=== PATIENT | male | born 1935 | race Caucasian/White ===

== ENCOUNTER 2020-01-18 13:39 | Inpatient (IN) | payer MEDICARE, OTHER ==
[~2020-01-18] VITALS: Ht 172.7 cm; Wt 84.0 kg
--- NOTE | 2020-01-18 13:58 | NUR ---
heparin gtt continued at 1200 units/hour. amiodaron gtt continued at 1 mg/hr (w filter on). pt is drowsy, oriented to self, place, year, not really situation. oriented x4 for outlying facility, received 100 fent by [facility] for pain. went to [facility], no head/loc, found in afib rvr and RA sat 88. cxr showed pna, given rocephin, lactic 1.7. 3 L ns bolus since 0700 d/t hypotension. denies cp sob. lungs ctab. afib 140s. 2lnc. abd snt. bs present. fall precs, call soares. as
[2020-01-18] MEDS ORDERED: FILTER 0.22 MICRON FOR AMIODARONE IV PRN (14:00)
[2020-01-18] MEDS ORDERED: PLEASE ENTER ALLERGIES MC SCH (14:00)
[2020-01-18] MEDS ORDERED: PLEASE ENTER HEIGHT AND WEIGHT MC SCH (14:00)
--- NOTE | 2020-01-18 14:18 | NUR ---
md at bedside. as
[2020-01-18] MEDS ORDERED: DILTIAZEM 125 MG in SODIUM CHLORIDE 0.9% 100 ML IV SCH (14:22)
[2020-01-18 14:55] LABS: BASOPHILS # (AUTO) 0.02 x10^3/uL (0-0.1); BASOPHILS % (AUTO) 0 % (0-1); EOSINOPHILS # (AUTO) 0.02 x10^3/uL (0-0.4); EOSINOPHILS % (AUTO) 0 % (1-7); LYMPHOCYTES % (AUTO) 19 % (22-44); MD NO; MEAN CORPUSCULAR HEMOGLOBIN 29.4 pg (27.5-34.5); MEAN CORPUSCULAR HGB CONC 32.9 g/dL (33.2-36.2); MEAN PLATELET VOLUME 8.4 fL (7.4-10.4); MONOCYTES # (AUTO) 0.67 x10^3/uL (0.2-0.8); MONOCYTES % (AUTO) 10 % (2-9); NEUTROPHILS # (AUTO) 4.82 x10^3/uL (1.8-6.8); NEUTROPHILS % (AUTO) 71 % (42-75); PLATELET COUNT 231 x10^3/uL (130-400); RED BLOOD COUNT 3.94 x10^6/uL (4.38-5.82); RED CELL DISTRIBUTION WIDTH 15.2 % (9.4-14.8)
--- NOTE | 2020-01-18 15:00 | NUR ---
pavel mcdaniels daughter [id number]
[2020-01-18 15:05] LABS: INTERNATIONAL NORMALIZED RATIO 1.14 (0.93-1.1); PROTHROMBIN TIME 12.1 Seconds (9.6-11.5)
[2020-01-18 15:07] LABS: ALBUMIN 2.4 g/dL (3.4-5.0); ANION GAP 10 mmol/L (5-15); CALCIUM 8.3 mg/dL (8.5-10.1); CHLORIDE 110 mmol/L (98-107)
--- NOTE | 2020-01-18 15:09 | NUR ---
updated . clarified heparin gtt w/ pharm. cont at 1200 units and draw anti 10xa timed. dilt gtt req from pharm. as
[2020-01-18 15:11] LABS: ALANINE AMINOTRANSFERASE 18 U/L (12-78); ALKALINE PHOSPHATASE 141 U/L (45-117); BILIRUBIN,TOTAL 1.7 mg/dL (0.2-1.0); CREATININE 1.31 mg/dL (0.7-1.3); T4 (THYROXINE) 6.9 mcg/dL (4.5-12.1); TOTAL PROTEIN 5.6 g/dL (6.4-8.2); TROPONIN I < 0.015 ng/mL (0.000-0.045)
[2020-01-18] MEDS: HEPARIN 25,000 UNITS/250ML PMX 250 ML IV PRN (15:21)
[2020-01-18] MEDS ORDERED: HEPARIN 5,000 UNITS/ML, 1ML IV ONE (16:00)
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
[2020-01-18] MEDS ORDERED: AMIODARONE 450 MG in DEXTROSE 5% 241 ML IV PRN (16:57)
[2020-01-18] MEDS ORDERED: hydrALAzine 20 MG/ML, 1ML IVPush PRN (17:00)
[2020-01-18] MEDS ORDERED: morphine SULFATE 10 MG/ML, 1ML IVPush PRN (17:00)
[2020-01-18] MEDS ORDERED: DILTIAZEM 125 MG in SODIUM CHLORIDE 0.9% 100 ML IV PRN (17:00)
[2020-01-18] MEDS ORDERED: POLYETHYLENE GLYCOL 17 GM PACKET PO PRN (17:00)
[2020-01-18] MEDS ORDERED: LIDODERM 5% PATCH TD PRN (17:00)
[2020-01-18] MEDS ORDERED: AZITHROMYCIN 500 MG in SODIUM CHLORIDE 0.9% 250 ML IV SCH (17:00)
[2020-01-18] MEDS ORDERED: ONDANSETRON 2MG/ML, 2ML IVPush PRN (17:00)
[2020-01-18] MEDS ORDERED: BISACODYL 10 MG SUPP PR PRN (17:00)
--- NOTE | 2020-01-18 17:00 | NUR ---
aware of hr afib 130s jules aware too plan for amio. as
[2020-01-18 17:17] LABS: BASOPHILS # (AUTO) 0.02 x10^3/uL (0-0.1); BASOPHILS % (AUTO) 0 % (0-1); EOSINOPHILS # (AUTO) 0.06 x10^3/uL (0-0.4); EOSINOPHILS % (AUTO) 1 % (1-7); LYMPHOCYTES # (AUTO) 1.44 x10^3/uL (1-3.4); LYMPHOCYTES % (AUTO) 21 % (22-44); MD NO; MEAN CORPUSCULAR HEMOGLOBIN 29.4 pg (27.5-34.5); MEAN CORPUSCULAR HGB CONC 32.8 g/dL (33.2-36.2); MEAN PLATELET VOLUME 8.3 fL (7.4-10.4); MONOCYTES # (AUTO) 0.62 x10^3/uL (0.2-0.8); MONOCYTES % (AUTO) 9 % (2-9); NEUTROPHILS % (AUTO) 68 % (42-75); PLATELET COUNT 216 x10^3/uL (130-400); RED CELL DISTRIBUTION WIDTH 15.1 % (9.4-14.8)
[2020-01-18 17:32] LABS: FREE T4 (FREE THYROXINE) 1.11 ng/dL (0.76-1.46); TROPONIN I 0.017 ng/mL (0.000-0.045)
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
[2020-01-18 18:24] VITALS: BP 107/62
[2020-01-18 19:42] VITALS: BP 103/67
[2020-01-18] MEDS: MELATONIN 5 MG TABLET PO PRN (20:48)
[2020-01-18] MEDS: CEFTRIAXONE PMX 1GM/50ML 50 ML IV SCH (20:49)
[2020-01-18] MEDS: OXYcodone IR 5MG TABLET PO PRN (20:49)
[2020-01-18 23:04] LABS: TROPONIN I < 0.015 ng/mL (0.000-0.045)
[2020-01-18] MEDS: HEPARIN 5,000 UNITS/ML, 1ML IV PRN (23:42)
[2020-01-19 00:14] VITALS: BP 104/65
[2020-01-19] MEDS: LIDODERM REMOVE PATCH NOTE XX SCH (03:03)
[2020-01-19] MEDS: HEPARIN 25,000 UNITS/250ML PMX 250 ML IV PRN (05:46)
[2020-01-19 06:16] LABS: ALANINE AMINOTRANSFERASE 18 U/L (12-78); ALBUMIN 2.4 g/dL (3.4-5.0); ANION GAP 10 mmol/L (5-15); CALCIUM 8.3 mg/dL (8.5-10.1); CHLORIDE 112 mmol/L (98-107); CREATININE 1.25 mg/dL (0.7-1.3)
[2020-01-19 06:18] LABS: ALKALINE PHOSPHATASE 138 U/L (45-117); BILIRUBIN,TOTAL 1.5 mg/dL (0.2-1.0); TOTAL PROTEIN 5.8 g/dL (6.4-8.2)
[2020-01-19 06:46] VITALS: BP 97/68
[2020-01-19] MEDS: HEPARIN 5,000 UNITS/ML, 1ML IV PRN (07:12)
[2020-01-19] MEDS ORDERED: PANTOPRAZOLE 40 MG IV IVPush SCH (07:30)
[2020-01-19] MEDS: CEFTRIAXONE PMX 1GM/50ML 50 ML IV SCH (10:28)
[2020-01-19] MEDS: DILTIAZEM 60 MG TABLET PO SCH ×3 (10:28→20:35)
[2020-01-19] MEDS ORDERED: OMNIPAQUE 350 MG/ML, 75ML BOTTLE ONE (11:09)
[2020-01-19 13:58] VITALS: BP 104/78
[2020-01-19 19:53] VITALS: BP 111/77
[2020-01-19] MEDS: MELATONIN 5 MG TABLET PO PRN (20:34)
[2020-01-19] MEDS: APIXABAN 5 MG TABLET PO SCH (20:35)
[2020-01-19] MEDS: OXYcodone IR 5MG TABLET PO PRN (20:35)
[2020-01-20] VITALS (12 sets, daily range): BP systolic 96–114; BP diastolic 52–79
[2020-01-20] MEDS: OXYcodone IR 5MG TABLET PO PRN (04:07)
[2020-01-20] MEDS: LIDODERM REMOVE PATCH NOTE XX SCH (05:00)
[2020-01-20] MEDS: PANTOPRAZOLE 40MG TABLET PO SCH (05:37)
[2020-01-20] MEDS: APIXABAN 5 MG TABLET PO SCH ×2 (09:16→20:57)
[2020-01-20] MEDS: DILTIAZEM 60 MG TABLET PO SCH ×3 (09:17→20:57)
[2020-01-20] MEDS ORDERED: LABETALOL 5MG/ML, 20ML IVPush ONE (17:30)
[2020-01-20] MEDS: MELATONIN 5 MG TABLET PO PRN (20:57)
[2020-01-21 02:25] VITALS: BP 110/59
[2020-01-21] MEDS: DILTIAZEM 60 MG TABLET PO SCH ×3 (02:46→09:32)
[2020-01-21] MEDS: LIDODERM REMOVE PATCH NOTE XX SCH (05:00)
[2020-01-21] MEDS: PANTOPRAZOLE 40MG TABLET PO SCH (05:26)
[2020-01-21 05:48] LABS: ANION GAP 8 mmol/L (5-15); CALCIUM 8.8 mg/dL (8.5-10.1); CHLORIDE 108 mmol/L (98-107); CREATININE 1.06 mg/dL (0.7-1.3)
[2020-01-21] MEDS ORDERED: METOPROLOL 1 MG/ML, 5ML IVPush ONE (06:45)
[2020-01-21] MEDS ORDERED: METOPROLOL TARTRATE 25 MG TAB PO ONE (06:45)
[2020-01-21 06:53] VITALS: BP 109/76
[2020-01-21] MEDS ORDERED: METO25TA35 PO (06:58)
[2020-01-21] MEDS ORDERED: LIDO700A20 TD (06:58)
[2020-01-21] MEDS ORDERED: DILT360T7 PO (06:58)
[2020-01-21] MEDS ORDERED: APIX5TAB PO (06:58)
[2020-01-21] MEDS: APIXABAN 5 MG TABLET PO SCH (09:32)
[2020-01-21 11:33] VITALS: BP 104/73
[2020-01-21] MEDS ORDERED: METOPROLOL TARTRATE 25 MG TAB PO SCH (18:00)
== END 2020-01-21 13:18 | disposition home or self-care (01) | DRG 542 ==
LOC: SUATTDRO 16:07 → ED 16:38 → EDIP 17:20 → 4NW 18:10 → 4EST 01-19 14:19 → 4WST 01-20 14:21
PROVIDERS: ADMIT Hospitalist; ATTEND Hospitalist
DX: M48.56XA Collapsed vertebra, not elsewhere classified, lumbar region, initial encounter for fracture (principal); J18.9 Pneumonia, unspecified organism; C78.00 Secondary malignant neoplasm of unspecified lung; N17.9 Acute kidney failure, unspecified; C79.51 Secondary malignant neoplasm of bone; I48.91 Unspecified atrial fibrillation; R09.02 Hypoxemia; C61 Malignant neoplasm of prostate; Z66 Do not resuscitate; Z20.828 Contact with and (suspected) exposure to other viral communicable diseases; I10 Essential (primary) hypertension; H91.90 Unspecified hearing loss, unspecified ear; I27.20 Pulmonary hypertension, unspecified; Z88.0 Allergy status to penicillin; Z85.46 Personal history of malignant neoplasm of prostate; Z79.899 Other long term (current) drug therapy
CPT/HCPCS: 36415; 71045; 71260; 80048; 80053; 83036; 83605; 83735; 83880; 84436; 84439; 84443; 84484; 85025; 85520; 85610; 85730; 87040; 87635; 93005; 93306; 96374; 96375; G0378; J0456; J0696; J1644; J2405; J7060; Q9967; C9113; J0282; J2270; J7050